=== PATIENT | female | born 1985 ===

== ENCOUNTER 2016-08-06 14:41 | Emergency (ER) | payer SELFPAY ==
[2016-08-06 16:07] VITALS: BP 121/64
[2016-08-06 16:55] LABS: Anion Gap 17 mmol/L; Blood Urea Nitrogen 9 mg/dL (7-17); Calcium 8.9 mg/dL (8.4-10.2); Carbon Dioxide 24 mmol/L (22-30); Chloride 99.6 mmol/L (98-107); Glucose 77 mg/dL (65-100); Potassium 4.2 mmol/L (3.6-5.0); Sodium 136 mmol/L (137-145)
--- NOTE | 2016-08-09 06:53 | ED Elopement Review ---
ED Pt Elopement review - Results review Lab results: Laboratory Tests 08/06/16 08/06/16 16:17 16:17 Sodium 136 L Potassium 4.2 Chloride 99.6 Carbon Dioxide 24 Anion Gap 17 BUN 9 Creatinine 0.6 L Estimated GFR > 60 BUN/Creatinine Ratio 15.00 Glucose 77 Calcium 8.9 Carbamazepine 0.5 L - Call Back decision Pt Call Back Decision: No action required
== END 2016-08-06 17:15 | disposition left against medical advice (07) ==
LOC: ED 14:41
DX: R51 Headache (principal); Z53.21 Procedure and treatment not carried out due to patient leaving prior to being seen by health care provider
CPT/HCPCS: 36415; 80048; 80156